=== PATIENT | female | born 1995 | race Asian ===

== ENCOUNTER → 2021-08-02 10:12 | Outpatient (BNVA) | payer MEDICARE, MEDICAID, SELFPAY | PROVIDERS: Family Provider Family Medicine; PCP Nurse Practitioner; Visit Provider Nurse Practitioner Psychiatric/Mental Health | DX: F42.4 Excoriation (skin-picking) disorder (principal); K59.01 Slow transit constipation; Q87.11 Prader-Willi syndrome; G47.00 Insomnia, unspecified | CPT/HCPCS: 90792 ==

== ENCOUNTER → 2021-08-19 08:59 | Outpatient (BNVA) | payer MEDICARE, MEDICAID, SELFPAY | PROVIDERS: Family Provider Family Medicine; PCP Nurse Practitioner; Visit Provider Nurse Practitioner Psychiatric/Mental Health | DX: Q87.11 Prader-Willi syndrome (principal); G47.00 Insomnia, unspecified | CPT/HCPCS: 99215 ==

== ENCOUNTER → 2021-10-18 15:13 | Outpatient (BNVA) | payer MEDICARE, MEDICAID, SELFPAY | PROVIDERS: Family Provider Family Medicine; PCP Nurse Practitioner; Visit Provider Nurse Practitioner | DX: G47.00 Insomnia, unspecified (principal); F42.4 Excoriation (skin-picking) disorder; F84.0 Autistic disorder | CPT/HCPCS: 80053; 80175; 85025 ==

== ENCOUNTER → 2021-10-25 11:00 | Outpatient (BNVA) | payer MEDICARE, MEDICAID, SELFPAY | PROVIDERS: Family Provider Family Medicine; PCP Nurse Practitioner; Visit Provider Nurse Practitioner Psychiatric/Mental Health | DX: F84.0 Autistic disorder (principal); Q87.11 Prader-Willi syndrome; G47.00 Insomnia, unspecified | CPT/HCPCS: 99214 ==

== ENCOUNTER 2023-01-13 17:00 | Emergency (ER) | payer MEDICARE, MEDICAID, SELFPAY ==
[2023-01-13 17:04] VITALS: PULSE 105; RESP 24; TEMP 36.8; O2SAT 97; BMI 23.9
--- NOTE | 2023-01-13 20:51 | ED_ITS ---
HPI - General Adult General: Chief complaint: General Medical Stated complaint: facial swelling Time Seen by Provider: 01/13/23 20:50 History of Present Illness: 27-year-old female comes in today for complaints of facial swelling to the right facial cheek. Patient has a history of autism spectrum disorder. Guardians report the patient has a front incisor that is decayed but they cannot get it removed due to her condition and need for full sedation to remove tooth. Patient has had no difficulty eating or drinking. Patient is managing secretions well. Patient does take oral medications. Review of Systems General: Reports: 10 or more systems reviewed and unremarkable except in HPI and below ENMT: Reports: other (Facial swelling, tooth decay) [facility] ED PFSH: Medical History Autism spectrum disorder Autistic disorder Chronic anxiety Related to her severe intellectual disability and Prader-Willi syndrome; currently problematic to her overall ability to function in her normal daily routine and living environment; requires constant supervision for her care. Sleeping very poorly at this time (11/22/21) and caregivers are unable to get her to sleep, even with Lunesta; is also on a regimen of hydroxyzine and clonazepam for anxiety, not effective at this time. Constipation, slow transit Excoriation (skin-picking) disorder Insomnia Kluver Bucy syndrome Prader-Willi syndrome Psychiatric care Seizure disorder Selective mutism Family History Mother Chronic mental illness Mother in [facility] Social History Smoking and tobacco status: never smoked Second hand smoke exposure: No Smoking risk assessment/counseling performed?: No Alcohol intake: never Desire information about alcohol rehabilitation?: No Counseling given: No Substance/Drug Use: never Desire information about substance/drug rehabilitation?: No Counseling given: No Adopted: Yes Caregiver/support person: Yes Lives independently: No Household members: caregiver, adopted family and other Housing: House Marital status: Single Number of children: 0 Number of grandchildren: 0 service: No Current occupational status: disabled Current occupational exposures/hazards: No Sexually active: No Do you think of yourself as: Straight/Heterosexual Current gender identity: Female Physical Exam Const: COMMON NORMALS: alert HENMT: COMMON NORMALS: normocephalic HEAD & SCALP: normocephalic FACE & SINUS: erythema (Right facial cheek) and edema (Right facial cheek) TEETH & GINGIVA: Yes abnormal tooth and associated gingiva (Swelling to the left central incisor gingiva) and Yes caries THROAT: posterior oropharynx normal Neck/C-Spine: COMMON NORMALS: full ROM Resp: COMMON NORMALS: normal respiratory effort and clear to auscultation bilaterally AUSCULTATION: clear to auscultation bilaterally Extremity: COMMON NORMALS: normal to inspection Neuro: SENSORIUM/ORIENTATION: Yes alert Skin: COMMON NORMALS: turgor normal GENERAL SKIN EXAM: turgor normal Course Vital Signs: Vital signs: Vital Signs Temperature 98.3 F 01/13/23 17:04 Pulse Rate 105 H 01/13/23 17:04 Respiratory Rate 24 H 01/13/23 17:04 Pulse Oximetry 97 01/13/23 17:04 Oxygen Delivery Me thod Room Air 01/13/23 17:04 MDM - General Adult Medical Decision Making 27-year-old female comes in today for complaints of facial swelling and tenderness. Patient is on the autism spectrum disorder and most communication is through her parental guardians. On exam patient has a significant decayed tooth to the left frontal incisor, gingiva is erythematous and swollen. Patient has some swelling to the right facial cheek with tenderness of the right sinus. Vital signs are normal. Patient manages secretions well. Differential diagnosis dental abscess, rhinosinusitis, dental decay. Patient was started on Augmentin for the treatment of a dental infection versus sinusitis. Parents reported understanding of care plan and need for follow-up or return to the ER. Discharge Plan Discharge Patient Disposition: Home Clinical Impression: Dental infection Condition: Stable Prescriptions: New amoxicillin-pot clavulanate 875-125 mg tablet 1 tab PO BID Qty: 14 0RF No Action cetirizine [Zyrtec] 10 mg tablet 10 mg PO DAILY Qty: 90 1RF famotidine [Pepcid] 40 mg tablet 40 mg PO DAILY Qty: 90 1RF hydroxyzine pamoate 50 mg capsule See Rx Instructions PO .COMPLEX Qty: 120 5RF Rx Instructions: 50mg AM 50mg noon 100mg HS PO; lamotrigine [Lamictal] 200 mg tablet 200 mg PO BID Qty: 180 1RF MediHoney (honey) 100 % paste 1 applic topical BID Qty: 103 0RF paliperidone 1.5 mg tablet extended release 24 hr See Rx Instructions PO QAM Qty: 30 1RF Rx Instructions: Take one tablet by mouth every morning paliperidone [Invega] 6 mg tablet extended release 24 hr 6 mg PO .q hs Qty: 30 1RF Rx Instructions: Take one tablet by mouth every night, one hour before bedtime acetylcysteine 600 mg capsule 600 mg PO BID Qty: 60 1RF Rx Instructions: Take one capsule morning and evening clonidine HCl 0.1 mg tablet 0.1 mg PO BID PRN (Reason: anxiety) Qty: 60 1RF Rx Instructions: Take one tablet morning and at bedtime, if needed for anxiety; hold for low BP alprazolam 1 mg tablet 1 mg PO TID PRN (Reason: anxiety) Qty: 90 1RF Rx Instructions: Take 1 tablet by mouth 3 times daily(4 to 6 hours apart)if needed for anxiety Discharge Orders: Discharge ED (Routine); Ordered 01/13/23 Ordered By: Salvador Menon Referrals: Alisa Langley, LANGUAGE THERAPIST [Primary Care Provider] - Discharge Diet: Usual diet Discharge Activity: Increase activity as tolerated Patient Instructions: Dental Abscess (ED) Activity Restrictions/Additional Instructions: Home and rest. Drink plenty of fluids. Continue of antibiotics as directed for the next 7 days. Return to ER for new concerns. Coding Level of Care Code ED Grain Drier for Bony Baird
[2023-01-13] MEDS: amoxicillin-clav 875-125 mg Tablet 1 TAB PO (21:30)
== END 2023-01-13 21:34 | disposition home or self-care (01) ==
PROVIDERS: Emergency Provider Nurse Practitioner Family; PCP Nurse Practitioner Family
DX: K04.7 Periapical abscess without sinus (principal); F84.0 Autistic disorder
CPT/HCPCS: 99283

== ENCOUNTER → 2024-09-18 07:49 | Outpatient (BNVA) | payer MEDICARE, MEDICAID, SELFPAY | PROVIDERS: PCP Nurse Practitioner Family; Visit Provider Psychiatry & Neurology Neurology | DX: G40.909 Epilepsy, unspecified, not intractable, without status epilepticus (principal); F84.0 Autistic disorder; G40.919 Epilepsy, unspecified, intractable, without status epilepticus | CPT/HCPCS: 99203 ==

== ENCOUNTER 2024-09-19 08:15 | Outpatient (CLI) | payer OTHER, MEDICAID, SELFPAY ==
[2024-09-19 08:57] LABS: Basophils % 0.3 %; Eosinophils # 0.2 10^3/uL (0.0-0.8); Eosinophils % 2.9 %; Hematocrit 41.4 % (36-47); Lymphocytes # 1.4 10^3/uL (0.8-4.8); Lymphocytes % 19.6 %; Mean Corpuscular HGB Conc 32.4 g/dL (30-55); Mean Corpuscular Hemoglobin 30.2 pg (27-33); Mean Corpuscular Volume 93.2 fl (85-98); Mean Platelet Volume 9.8 fL (7.4-10.4); Monocytes # 0.5 10^3/uL (0.2-0.9); Neutrophils % 69.9 %; Nucleated Red Blood Cells % 0 %; Platelet Count 338 10^3/cmm (157-399); Red Blood Count 4.44 10^6/uL (3.85-5.65); Red Cell Distribution Width 12.5 % (12.1-15.1); White Blood Count 7.29 10^3/uL (3.29-11.43)
[2024-09-19 09:36] LABS: 25 Hydroxy Vitamin D 14 ng/mL (30-100); Alanine Aminotransferase 11 U/L (0-33); Albumin Level 4.4 g/dL (3.5-5.2); Alkaline Phosphatase 71 U/L (35-105); Aspartate Amino Transferase 14 U/L (0-32); Thyroid Stimulating Hormone 1.39 uIU/mL (0.27-4.20); Total Bilirubin 0.3 mg/dL (0.15-1.2); Total Protein 7.4 g/dL (6.6-8.7); Vitamin B12 470 pg/mL (232-1245)
[2024-09-19 10:33] LABS: Free T4 Free Thyroxine 1.31 ng/dL (0.82-1.77)
== END 2024-09-19 08:16 | disposition home or self-care (01) ==
LOC: LAB 08:19
PROVIDERS: PCP Nurse Practitioner Family; Visit Provider Psychiatry & Neurology Neurology
DX: G40.909 Epilepsy, unspecified, not intractable, without status epilepticus (principal); F84.0 Autistic disorder; N18.32 Chronic kidney disease, stage 3b
CPT/HCPCS: 36415; 80076; 80175; 82306; 82607; 82746; 83921; 84439; 84443; 85025